=== PATIENT | male | born 1945 | race Caucasian/White ===

== ENCOUNTER 2019-05-07 06:51 | Day surgery (SDC) | payer MEDICARE, BC ==
[~2019-05-07] VITALS: Ht 185.4 cm; Wt 60.9 kg
[2019-05-07 07:20] LABS: HEMATOCRIT 40.9 % (42.0-54.0); HEMOGLOBIN 13.5 g/dL (13.5-17.5); MCH 31.8 pg (26.0-34.0); MCV 96.2 fL (80.0-100.0); MEAN PLATELET VOLUME 9.5 fL (7.4-10.4); RBC 4.25 10x6/uL (4.20-6.10); WBC 5.9 10x3/uL (4.8-10.8)
[2019-05-07] MEDS ORDERED: NEXIUM20 MG PO (07:35)
[2019-05-07] MEDS ORDERED: CELEBREX 100 M100 MG PO (07:35)
[2019-05-07] MEDS ORDERED: ACETAMINOPHEN500 M1 PO (07:36)
[2019-05-07] MEDS ORDERED: HYDROCODON-ACE1 EA10 PO (07:36)
[2019-05-07 07:45] VITALS: BP 156/88; Ht 185.4 cm; Wt 60.9 kg
--- NOTE | 2019-05-07 09:39 | NUR ---
DC INSTRUCTIONS GIVEN TO PT/FRIEND. STATE UNDERSTANDING. DC'D IV CATH FULLY INTACT.
--- NOTE | 2019-05-07 09:46 | NUR ---
PT LEFT UNIT VIA AT [id number]
--- NOTE | 2019-05-08 18:12 | OP ---
PATIENT NAME: ALICIA JEAN BAPTISTE MEDICAL RECORD: [id number] :47 LOCATION:[facility] ADMISSION DATE: SURGEON: CECILIA HUDSON DO DATE OF OPERATION: 05/07/2019 PROCEDURE: Colonoscopy with polypectomy. INDICATIONS FOR PROCEDURE: Iron deficiency anemia, which is [id number], as well as a history of partial gastrectomy and diverticulosis of the colon. SCOPE: Olympus video pediatric colonoscope. MEDICATIONS: Propofol 410 mg IV per anesthesia. WITHDRAWAL TIME: 16 minutes. ESTIMATED BLOOD LOSS: Minimal. COMPLICATIONS: None. FINDINGS: Informed consent was given. The patient was made comfortable with the above medication. After reaching an adequate level of sedation by slow IV push, the patient was placed on his left side. A digital rectal examination was performed and was normal. The endoscope was then advanced under direct visualization through the rectum to the cecum and terminal ileum. The endoscope was slowly withdrawn and mucosa was carefully examined. Prep quality was good. There was 1 polyp visualized on today's examination. It was a benign appearing sessile polyp, which measured approximately 3-4 mm in diameter. It was located in the descending colon and removed using hot forceps. There was evidence of mild diverticulosis involving the sigmoid colon. Retroflexion was performed in the rectum with a normal appearing rectal wall. The endoscope was withdrawn from the patient. The patient tolerated the procedure well and there were no complications. IMPRESSION: 1. A single benign-appearing polyp located in the descending colon. 2. Mild diverticulosis. PLAN AND RECOMMENDATIONS: 1. Discharge home when recovery parameters are met. 2. Follow up biopsy specimen results. 3. High fiber diet. 4. Continue current medications. 5. Proceed with EGD as scheduled. 6. The patient's anemia is likely related to his past gastric resection and malabsorption of iron and vitamin B12. Recommend monitoring these levels and supplementing when needed. 7. Recall colonoscopy in 5 years. TRANSINT:[id number] Voice Confirmation ID: [id number] DOCUMENT ID: [id number] OPERATIVE REPORT [id number] ALICIA JEAN BAPTISTE CECILIA HUDSON DO at 1812 CC: [id number] DICTATION DATE: 05/07/19916 ANALYTICAL SCIENCES DIRECTOR: 05/07/19 0940 [facility] 05/07/19 [facility] [address] [place] [address]
== END 2019-05-07 09:44 | disposition home or self-care (01) ==
LOC: D.OPS 06:51
PROVIDERS: Anesthesiology; ATTEND Internal Medicine Gastroenterology
DX: D50.9 Iron deficiency anemia, unspecified (principal); K57.90 Diverticulosis of intestine, part unspecified, without perforation or abscess without bleeding; K63.5 Polyp of colon

== ENCOUNTER 2019-07-04 07:16 | Day surgery (SDC) | payer MEDICARE, BC ==
[~2019-07-04] VITALS: Ht 185.4 cm; Wt 60.9 kg
[~2019-07-04 07:16] MED LIST: ACETAMINOPHEN500 M1 PO; CELEBREX 100 M100 MG PO; HYDROCODON-ACE1 EA10 PO; NEXIUM20 MG PO
[2019-07-04 07:31] LABS: HEMATOCRIT 43.2 % (42.0-54.0); HEMOGLOBIN 14.1 g/dL (13.5-17.5); MCH 33.3 pg (26.0-34.0); MCHC 32.6 g/dL (31.0-37.0); MCV 102.1 fL (80.0-100.0); MEAN PLATELET VOLUME 9.5 fL (7.4-10.4); RBC 4.23 10x6/uL (4.20-6.10); RDW 14.4 % (11.5-14.5); WBC 6.4 10x3/uL (4.8-10.8)
[2019-07-04 08:09] VITALS: BP 145/84; Ht 185.4 cm; Wt 60.9 kg
--- NOTE | 2019-07-04 10:59 | OP ---
PATIENT NAME: ALICIA JEAN BAPTISTE MEDICAL RECORD: [id number] :47 [facility]ATION:[facility] ADMISSION DATE: SURGEON: CECILIA HUDSON DO DATE OF OPERATION: 07/04/2019 PROCEDURE: EGD with biopsies. INDICATIONS FOR PROCEDURE: Iron deficiency anemia and dysphagia. SCOPE: Olympus video gastroscope. MEDICATIONS: Propofol 150 mg IV per anesthesia. ESTIMATED BLOOD LOSS: Minimal. COMPLICATIONS: None. FINDINGS: Informed consent was given. The patient was made comfortable with the above medication. After reaching an adequate level of sedation by slow IV push, the patient was placed on his left side. The endoscope was advanced under direct visualization through the mouth to the jejunum. The upper and middle esophagus appeared normal. In the distal third of the esophagus and down at the GE junction, there were changes consistent with LA class B reflux-induced esophagitis. The endoscope was advanced beyond the GE junction into the stomach and retroflexed to view the cardia, which appeared normal. In the stomach, there was evidence of a prior intervention consisting of a distal antrectomy with a gastrojejunostomy. The gastric pouch itself appeared inflamed and erythematous. Appearance is consistent with gastritis. At the anastomosis, there was some granulation tissue, which was biopsied with cold forceps. This will also serve to rule out the presence of H. pylori. The endoscope was advanced beyond the anastomosis into the duodenum, which appeared normal. The endoscope was then withdrawn from the patient. The patient tolerated the procedure well and there were no complications. IMPRESSIONS: 1. LA class B reflux-induced esophagitis. 2. Gastritis. 3. Evidence of a prior antrectomy with a gastrojejunostomy formation. PLAN AND RECOMMENDATIONS: 1. Discharge home when recovery parameters are met. 2. Follow up biopsy specimen results. 3. GERD diet and reflux precautions. 4. We will provide a prescription for omeprazole 40 mg daily times 60 days for inflammation changes seen at the GE junction and to the stomach. If the patient continues long-term acid suppression, I would recommend use of Pepcid 20-40 mg daily to b.i.d. TRANSINT:[id number] Voice Confirmation ID: [id number] DOCUMENT ID: [id number] OPERATIVE REPORT [id number] ALICIA JEAN BAPTISTE CECILIA HUDSON DO at 1054 CC: [id number] DICTATION DATE: 07/04/19 0859 [employer] ASSAYER: 07/04/19 1041 [facility] 07/04/[address] [facility] [address] [place] [id number]
== END 2019-07-04 10:05 | disposition home or self-care (01) ==
LOC: D.OPS 07:16
PROVIDERS: Anesthesiology; ATTEND Internal Medicine Gastroenterology
DX: D50.9 Iron deficiency anemia, unspecified (principal); R13.10 Dysphagia, unspecified; K21.0 Gastro-esophageal reflux disease with esophagitis; K29.70 Gastritis, unspecified, without bleeding

== ENCOUNTER 2021-01-26 06:11 | Day surgery (SDC) | payer MEDICARE, BC ==
[~2021-01-26] VITALS: Ht 185.4 cm; Wt 61.4 kg
[2021-01-26 06:57] LABS: HEMATOCRIT 24.3 % (42.0-54.0); HEMOGLOBIN 7.7 g/dL (13.5-17.5); MCH 32.2 pg (26.0-34.0); MCHC 31.7 g/dL (31.0-37.0); MCV 101.7 fL (80.0-100.0); MEAN PLATELET VOLUME 9.1 fL (7.4-10.4); RBC 2.39 10x6/uL (4.20-6.10); RDW 22.4 % (11.5-14.5); WBC 8.7 10x3/uL (4.8-10.8)
[2021-01-26 07:31] VITALS: BP 116/62; Ht 185.4 cm; Wt 61.4 kg
[2021-01-26] MEDS ORDERED: VENTOLIN HFA [SP8 GM INH (07:48)
[2021-01-26] MEDS ORDERED: PACERONE200 MG PO (07:50)
[2021-01-26] MEDS ORDERED: NORVASC5 MG PO (07:50)
[2021-01-26] MEDS ORDERED: LOW DOSE ASPIRI81 M1 PO (07:51)
[2021-01-26] MEDS ORDERED: LIPITOR40 MG PO (07:53)
[2021-01-26] MEDS ORDERED: VITAMIN B-121000 MCG IM (07:55)
[2021-01-26] MEDS ORDERED: VALIUM10 MG PO (07:56)
[2021-01-26] MEDS ORDERED: PEPCID AC20 MG PO (07:56)
[2021-01-26] MEDS ORDERED: IPRAT-ALBUT 0.5-3 ML UPD (07:57)
[2021-01-26] MEDS ORDERED: IMODIUM2 MG PO (07:58)
[2021-01-26] MEDS ORDERED: BRILINTA90 MG PO (07:59)
--- NOTE | 2021-01-26 08:45 | NUR ---
DR HUDSON AT BEDSIDE 0920 DC TEACHING TO DAUGHTER AND PT. VERBALIZED UNDERSTANDING. PIV DC'D WITH CATHETER INTACT, DAUGHTER HELPING PT TO GET DRESSED. ORDER FOR F/U OFFICE APPT FAXED FOR 8 WEEKS OUT. 0969 PT DC'D VIA WC ACCOMPANIED BY THIS NURSE TO POV WITH DAUGHTER DRIVING. PT/DAUGHTER HAS ALL BELONGINGS/DC PACKET.
--- NOTE | 2021-01-26 18:10 | OP ---
PATIENT NAME: ALICIA JEAN BAPTISTE MEDICAL RECORD: [id number] :47 [facility] DATE: SURGEON: CECILIA HUDSON DO DATE OF OPERATION: 01/26/2021 PROCEDURE: EGD with hemostasis. INDICATION FOR PROCEDURE: Dysphagia and anemia with melena. SCOPE: Olympus video gastroscope. MEDICATIONS: Propofol 110 mg IV per anesthesia. ESTIMATED BLOOD LOSS: Less than 2 mL. COMPLICATIONS: None. FINDINGS AND DESCRIPTION OF PROCEDURE: Informed consent was given. The patient was made comfortable with the above medication. After reaching an adequate level of sedation by slow IV push, the patient was placed on his left side. The endoscope was advanced under direct visualization through the mouth to the jejunum. The upper and middle esophagus appeared normal. In the distal esophagus and down to the GE junction, there was evidence of LA class C reflux-induced esophagitis. There was no stricture or severe narrowing of the esophagus. The endoscope was advanced beyond the GE junction into the stomach and immediately bright red blood was visualized. Time was spent washing out the stomach for better visualization of the mucosa. The cardia and fundus appeared normal. There was a prior surgery in the form of an antrectomy with gastrojejunostomy formation. Just proximal to the gastrojejunostomy site, there was oozing mucosa. It was not ulcerated. The lesion appeared consistent with a Dieulafoy lesion. There were 2 sites right next to each other for hemostasis, measures 2 mL of diluted epinephrine was injected into the base of the sites followed by Gold probe coagulation successfully. At the completion of the procedure, there was no active bleeding. The jejunum was evaluated and looked normal as far down as the endoscope could pass. No biopsies were taken on any sites today because the patient is actively on Brilinta for cardiac stents that were placed one month ago. The endoscope was withdrawn from the patient. The patient tolerated the procedure well and there were no complications. IMPRESSION: 1. LA class A reflux-induced esophagitis. 2. Gastritis changes. 3. Prior gastric antrectomy with gastrojejunostomy formation. 4. Bleeding Dieulafoy lesion just proximal to the gastrojejunostomy anastomosis, status post hemostasis with epinephrine injection times 2 mL and Gold probe coagulation. PLAN AND RECOMMENDATIONS: 1. Discharge home when recovery parameters are met. 2. Follow up. 3. GERD precautions. 4. Omeprazole 40 mg b.i.d. times 2 weeks followed by daily times 60 days. 5. Carafate suspension q.i.d. x2 weeks. 6. Notify GI clinic if symptoms worsen or fail to improve or if ongoing bleeding is occurring. OPERATIVE REPORT [id number] JEAN BAPTISTE,VARGAS K TRANSINT:[id number] Voice Confirmation ID: [id number] DOCUMENT ID: [id number] CECILIA HUDSON DO at 1810 CC: [id number] DICTATION DATE: 01/26/21833 [employer]AT: 01/26/[address] [facility] 01/26/21 [facility] [address] [place] [address]
== END 2021-01-26 09:36 | disposition home or self-care (01) ==
LOC: D.OPS 06:11
PROVIDERS: Anesthesiology; ATTEND Internal Medicine Gastroenterology
DX: R13.10 Dysphagia, unspecified (principal); D50.9 Iron deficiency anemia, unspecified; K92.1 Melena; K21.00 Gastro-esophageal reflux disease with esophagitis, without bleeding; K29.70 Gastritis, unspecified, without bleeding; Z90.3 Acquired absence of stomach [part of]; Z98.0 Intestinal bypass and anastomosis status